=== PATIENT | male | born 1955 | race Two or more races ===

== ENCOUNTER 2021-04-18 10:57 | Emergency (ER) | payer OTHER ==
[~2021-04-18] VITALS: Ht 182.9 cm; Wt 103.0 kg
[2021-04-18 11:10] VITALS: BP 129/77
[2021-04-18 14:09] LABS: Basophils # (auto) 0.1 10 ^3/uL (0-0.2); Basophils % (auto) 1.1 % (0.0-2.0); Eosinophils # (auto) 0.2 10 ^3/uL (0-0.8); Eosinophils % (auto) 2.1 % (0.0-7.0); Hematocrit 43.8 % (41.0-53.0); Hemoglobin 14.8 g/dL (13.5-17.5); Lymphocytes # (auto) 2.5 10 ^3/uL (0.4-5.4); Lymphocytes % (auto) 28.7 % (10.0-50.0); Mean Corpuscular Hemoglobin 30.9 pg (28.0-32.0); Mean Corpuscular Hgb Conc. 33.8 g/dL (32.0-36.0); Mean Corpuscular Volume 91.6 fL (80.0-100.0); Monocytes # (auto) 0.5 10 ^3/uL (0-1.3); Monocytes % (auto) 5.8 % (0.0-12.0); Neutrophils # (auto) 5.3 10 ^3/uL (1.6-8.6); Neutrophils % (auto) 62.3 % (37.0-80.0); Red Blood Cells 4.79 10^6/uL (4.5-5.90); White Blood Cell 8.6 10^3/uL (4.4-10.8)
[2021-04-18 14:32] LABS: Albumin 3.7 g/dL (3.4-5.0); Calcium 9.2 mg/dL (8.5-10.1); Potassium 4.3 mmol/L (3.5-5.1)
[2021-04-18 14:39] LABS: BUN/Creatinine Ratio 10.1; Bilirubin, Total 0.2 mg/dL (0.2-1.0); Total Protein 7.3 g/dL (6.4-8.2)
== END 2021-04-18 19:08 | disposition left against medical advice (07) ==
LOC: ER 10:57 → EDBD 10:57 → ER 19:08
DX: I24.9 Acute ischemic heart disease, unspecified (principal); I25.10 Atherosclerotic heart disease of native coronary artery without angina pectoris
CPT/HCPCS: 36415; 71045; 80053; 83880; 84484; 85025; 93005